=== PATIENT | female | born 1995 | race Caucasian/White ===

== ENCOUNTER 2018-04-27 16:51 | Emergency (ER) | payer SELFPAY, MEDICAID ==
[2018-04-27] MEDS: NEOMYC/POLYMYX/DEXAMETH OPH 5 ML LEFT EYE (19:53)
== END 2018-04-27 20:13 | disposition home or self-care (01) ==
LOC: FTE 16:51
DX: S05.90XA Unspecified injury of unspecified eye and orbit, initial encounter (principal); X58.XXXA Exposure to other specified factors, initial encounter; Y92.9 Unspecified place or not applicable
CPT/HCPCS: 70200; 99283-25